=== PATIENT | male | born 1990 | race Caucasian/White ===

== ENCOUNTER → 2023-03-21 | Outpatient (REF) | payer OTHER | LOC: M WUC 21:21 | PROVIDERS: ATTEND Physician Assistant | DX: R30.0 Dysuria (principal) ==

== ENCOUNTER 2023-07-24 23:01 | Emergency (ER) | payer OTHER ==
[~2023-07-24] VITALS: Ht 193 cm; Wt 91.3 kg
[2023-07-25] MEDS ORDERED: KETOROLAC 30 MG/ML 1ML VIAL IV ONE (03:45)
[2023-07-25] MEDS: GASTROGRAFIN SOLUTION 30ML PO SCH ×2 (04:06→04:46)
[2023-07-25 04:14] LABS: BASO # 0.1 10^3/uL (0.0-0.2); BASO % 0.9 % (0.0-1.0); EOS # 0.1 10^3/uL (0.0-0.5); HEMATOCRIT 40.3 % (42.0-52.0); HEMOGLOBIN 13.7 g/dl (13.5-17.5); LYMPH # 1.4 10^3/uL (1.5-5.0); LYMPH % 25.3 % (24.0-44.0); MEAN CORPUSCULAR HEMOGLOBIN 29.7 pg (27.0-33.0); MEAN CORPUSCULAR VOLUME 87.2 fl (80.0-96.0); MONO # 0.5 10^3/uL (0.0-0.8); MONO % 9.4 % (2.0-8.0); NEUTROPHILS # 3.4 10^3/uL (1.5-8.5); PLATELET COUNT, AUTOMATED 199 10^3/uL (150-450); RED BLOOD COUNT 4.62 10^6/uL (4.30-6.10); WHITE BLOOD COUNT 5.5 10^3/uL (4.0-10.0)
[2023-07-25] MEDS ORDERED: ISOVUE-370 76% 100ML VIAL As Ordered ONE (04:16)
[2023-07-25 04:34] LABS: INR 1.09; PARTIAL THROMBOPLASTIN TIME 31.1 SECONDS (24.8-34.2); PROTHROMBIN TIME 13.8 SECONDS (12.5-14.5)
[2023-07-25 04:36] LABS: LIPASE 26 U/L (12-53)
[2023-07-25 04:38] LABS: ALBUMIN 3.8 G/DL (3.2-5.2); ALKALINE PHOSPHATASE 80 U/L (46-116); ALT/SGPT 27 U/L (7.0-40); AST/SGOT 15 U/L (<34); BILIRUBIN,DIRECT 0.1 MG/DL (<0.4); BILIRUBIN,TOTAL 0.3 MG/DL (0.3-1.2); BLOOD UREA NITROGEN 11 MG/DL (9-23); CALCIUM LEVEL 9.1 MG/DL (8.5-10.1); CARBON DIOXIDE LEVEL 32 MMOL/L (20-31); CHLORIDE LEVEL 104 MMOL/L (98-107); CREATININE FOR GFR 0.94 MG/DL (0.70-1.30); GLOMERULAR FILTRATION RATE > 60.0 (>60); GLUCOSE, FASTING 82 MG/DL (60-100); POTASSIUM SERUM 4.4 MMOL/L (3.5-5.1); SODIUM LEVEL 142 MMOL/L (136-145); TOTAL PROTEIN 6.4 G/DL (5.7-8.2)
[2023-07-25] MEDS ORDERED: DOXYCYCLINE HYCLATE 100MG TABLET PO ONE (07:55)
[2023-07-25] MEDS ORDERED: cefTRIAXone SOD 1GM VIAL IM ONE (07:55)
[2023-07-25] MEDS ORDERED: LIDOCAINE 1% SDV 5ML VIAL DILUENT ONE (07:55)
[2023-07-25] MEDS ORDERED: DOXY-443 PO (07:58)
[2023-07-25 08:00] VITALS: BP 131/67
[2023-07-25 08:05] VITALS: TEMP 96.8; O2SAT 100
[2023-07-25 08:58] LABS: CHLAMYDIA DNA AMPLIFICATION NEGATIVE (NEGATIVE); GC DNA AMPLIFICATION NEGATIVE (NEGATIVE)
== END 2023-07-25 08:23 | disposition home or self-care (01) ==
LOC: M ED 23:01
DX: N41.0 Acute prostatitis (principal); Z79.899 Other long term (current) drug therapy
CPT/HCPCS: 74018; 74177; 80048; 80076; 81001; 83605; 83690; 85025; 85610; 85730; 86850; 86900; 86901; 87661; 87810; 87850; 93041; 96372; 96374; 99285; J0696; J1885; Q9963; Q9967